=== PATIENT | female | born 1945 | race Caucasian/White ===

== ENCOUNTER 2017-03-05 12:28 | Observation (INO) | payer MEDICAID, OTHER ==
[~2017-03-05] VITALS: Ht 165.1 cm; Wt 101.9 kg
[2017-03-05] MEDS ORDERED: NITROGLYCERIN 2% 1 GM OINT PKT TD STA (12:33)
[2017-03-05] MEDS ORDERED: ASPIRIN 81 MG TAB PO STA (12:33)
[2017-03-05 12:55] LABS: ADD SCAN DIFF NO
[2017-03-05] MEDS ORDERED: NITROGLYCERIN (SL) 0.4 MG TAB SL PRN (13:00)
[2017-03-05 13:01] LABS: BASOPHILS % 0.5 % (0.0-2.0); EOSINOPHILS # 0.2 10^3/ul (0.0-0.5); EOSINOPHILS % 3.5 % (0.0-7.0); HEMATOCRIT 42.6 % (37.0-47.0); LYMPHOCYTES # 1.6 10^3/ul (0.8-2.9); LYMPHOCYTES % 26.5 % (15.0-51.0); MEAN CORPUSCULAR HEMOGLOBIN 28.8 pg (29.0-33.0); MEAN CORPUSCULAR HGB CONC 32.9 g/dl (32.0-37.0); MEAN CORPUSCULAR VOLUME 87.7 fl (82.0-101.0); MEAN PLATELET VOLUME 10.3 fl (7.4-10.4); MONOCYTE # 0.5 10^3/ul (0.3-0.9); MONOCYTES % 8.7 % (0.0-11.0); NEUTROPHIL # 3.6 10^3/ul (1.6-7.5); NEUTROPHILS % 60.5 % (39.0-77.0); PLATELET COUNT 220 10^3/UL (140-415); RED BLOOD COUNT 4.86 10^6/ul (4.20-5.40); RED CELL DISTRIBUTION WIDTH 12.5 % (11.5-14.5)
--- NOTE | 2017-03-05 13:17 | RADRPT ---
PROCEDURE: XR Chest. CLINICAL INDICATION: chest pain TECHNIQUE: Single AP view of the chest were obtained COMPARISON: 07/05/2012 FINDINGS: The heart is moderately enlarged and this is stable. There has been placement of a left-sided cardi ac pacing device with leads extending to the right atrium and ventricle. The pulmonary vasculature a re unremarkable. The aorta demonstrates atherosclerotic calcifications. There is no lung consolida tion, pleural effusion or pneumothorax. Degenerative changes are seen within the thoracic spine. T here is no acute osseous abnormality. IMPRESSION: Stable cardiomegaly. Interval placement of a left-sided cardiac pacing device since the prior study. Otherwise no acute pulmonary process. RPTAT: AA .Jose Huddleston MD, Date Time Electronically viewed and signed by .Jose Huddleston MD, on 03/05/2017 13:16 .J/
[2017-03-05 13:21] LABS: INR 0.97; PROTIME 12.9 Sec (12.2-14.2)
[2017-03-05 13:22] LABS: PARTIAL THROMBOPLASTIN TIME 30.8 Sec (25.0-35.0)
[2017-03-05 13:27] LABS: ANION GAP 12 (8-16); BLOOD UREA NITROGEN 18 mg/dl (7-20); CALCIUM 8.8 mg/dl (8.4-10.2); CARBON DIOXIDE 26 mmol/L (21-31); CHLORIDE 112 mmol/L (97-110); CREATININE 0.71 mg/dl (0.44-1.00); GLUCOSE 109 mg/dl (70-220); POTASSIUM 3.8 mmol/L (3.5-5.1); SODIUM 146 mmol/L (135-144)
[2017-03-05 13:42] LABS: TROPONIN-I < 0.012 ng/ml (0.00-0.12)
[2017-03-05] MEDS ORDERED: ASPI-664 PO (14:05)
[2017-03-05] MEDS ORDERED: CARV3.1260 PO (14:05)
[2017-03-05] MEDS ORDERED: SACU1TAB PO (14:06)
[2017-03-05] MEDS ORDERED: CLOP75TA27 PO (14:06)
[2017-03-05] MEDS ORDERED: ROSU40TA35 PO (14:06)
[2017-03-05] MEDS ORDERED: ONDANSETRON 4 MG INJ IV PRN ×2 (15:00→18:30)
[2017-03-05] MEDS ORDERED: ACETAMINOPHEN 325 MG TAB PO PRN ×2 (15:00→18:30)
--- NOTE | 2017-03-05 15:52 | CONS ---
Date/Time of Note Date/Time of Note DATE: 03/05/17 TIME: 15:46 Assessment/Plan Assessment/Plan Additional Assessment/Plan Chest pain CAD with history of PCI to LAD June 2012 Cardiomyopathy Hypertension Dyslipidemia -ECG without significant acute ischemic abnormalities, first set of troponins are negative. Would obtain serial cardiac enzymes, continue aspirin and Plavix and beta-audrey and statin therapy. Check echocardiogram. Patient on Entresto , thus, likely history of left ventricular systolic dysfunction. If cardiac enzymes remain negative, plan for nuclear cardiac perfusion study in the a.m. Plan of care discussed with the patient and in agreement. Consultation Date/Type/Reason Admit Date/Time Type of Consultation: cv Reason for Consultation Chest pain Hx of Present Illness This is a 72-year-old female with past medical history of coronary artery disease with PCI to LAD June 2012, cardiomyopathy, hypertension who presents with 3 days of chest pain. Chest pain is left-sided. Intermittent association with shortness of breath. Sometimes with activity sometimes not. Chest pain is similar to when she had her myocardial infarction in June 2012 but the intensity is much less. Symptoms were worse this morning she came to the emergency room for evaluation and care. She denies any chest pain or shortness of breath at the current time. She does see her developer analyst on a regular basis. She states she is compliant with her medications. She denies any dizziness or lightheadedness. 12 point review of systems was performed with all pertinent positives and negatives mentioned above and all else is negative Past Medical History Medical History: coronary artery disease, high cholesterol, hypertension Past Surgical History Past Surgical Hx: angioplasty Family History Significant Family History: no pertinent family hx Social History Smoking Status: Current some day smoker Other Social History Lives at home Exam/Review of Systems Vital Signs Vitals Vital Signs Date Time Temp Pulse Resp B/P Pulse Ox O2 Delivery O2 Flow Rate FiO2 03/05/17 12:59 97 22 133/73 97 Room Air 03/05/17 12:37 97.9 Exam No apparent distress, Burkinan-speaking Constitutional: alert, obese, oriented Head: normocephalic Neck: supple Respiratory: clear to auscultation, normal air movement Cardiovascular: other (S1-S2 heard), regular rate and rhythm Gastrointestinal: bowel sounds, non-tender, other (No guarding), soft Extremities: edema (Trace) Results Result Diagram: 03/05/17 1240 03/05/17 1240 Results 24 hrs Laboratory Tests Test 03/05/17 12:40 White Blood Count 6.0 Red Blood Count 4.86 Hemoglobin 14.0 Hematocrit 42.6 Mean Corpuscular Volume 87.7 Mean Corpuscular Hemoglobin 28.8 L Mean Corpuscular Hemoglobin Concent 32.9 Red Cell Distribution Width 12.5 Platelet Count 220 Mean Platelet Volume 10.3 Neutrophils % 60.5 Lymphocytes % 26.5 Monocytes % 8.7 Eosinophils % 3.5 Basophils % 0.5 Nucleated Red Blood Cells % 0.0 Neutrophils # 3.6 Lymphocytes # 1.6 Monocytes # 0.5 Eosinophils # 0.2 Basophils # 0.0 Nucleated Red Blood Cells # 0.0 Prothrombin Time 12.9 Prothrombin Time Ratio 1.0 INR International Normalized Ratio 0.97 Activated Partial Thromboplast Time 30.8 Sodium Level 146 H Potassium Level 3.8 Chloride Level 112 H Carbon Dioxide Level 26 Anion Gap 12 Blood Urea Nitrogen 18 Creatinine 0.71 Glucose Level 109 Calcium Level 8.8 Troponin I < 0.012 Procedures Procedures ECG demonstrates sinus rhythm, anterior Q waves, nonspecific STT wave abnormalities Ghassan Puente DO Mar 05, 2017 15:52
--- NOTE | 2017-03-05 16:59 | ERA ---
ER Documentation Chief Complaint Date/Time DATE: 03/05/17 TIME: 16:57 Chief Complaint LEFT ARM RADIATING TO LEFT NECK. HX OF CARDIAC. NO C/O CP. HPI Patient is a 72-year-old female with cardiac disease and hypertension who presents with chest pain. She has chest pain, neck pain, and shoulder pain. She was brought in by ambulance. She came from home. She said that she had an infarct 3 years ago and that this feels like her previous infarct. She has had 3 days of stress. Upon review of old medical records the patient one previous visit to the ER in 2011. She does not currently have a primary doctor. She says that her nursing care partner is Dr. Lance Garduno. ROS All systems reviewed and are negative except as per history of present illness. Medications Home Meds Reported Medications Sacubitril/Valsartan (Entresto 24 mg-26 mg Tablet) 1 Each Tablet, 1 EACH PO BID , TAB 03/05/17 Rosuvastatin Calcium* (Crestor*) 40 Mg Tablet, 40 MG PO QHS, #30 TAB 03/05/17 Clopidogrel Bisulfate (Clopidogrel) 75 Mg Tablet, 75 MG PO DAILY, #30 TAB 03/05/17 Carvedilol* (Carvedilol*) 3.125 Mg Tablet, 3.125 MG PO BID, #60 TAB 03/05/17 Aspirin* (Aspirin* EC) 81 Mg Tablet.dr, 81 MG PO DAILY, TAB 03/05/17 Allergies Allergies: Coded Allergies: No Known Allergies (Verified Allergy, Unknown, 03/05/17) PMhx/Soc History of Surgery: Yes (KIDENY STONE REMOVAL, APPENDICITIS) Anesthesia Reaction: No Hx Neurological Disorder: No Hx Respiratory Disorders: No Hx Cardiac Disorders: Yes (FROM TIME TO TIME CHEST PAIN) Hx Psychiatric Problems: No Hx Alcohol Use: No Hx Substance Use: No Hx Tobacco Use: Yes (2 CIGARETS A DAY) Smoking Status: Current some day smoker FmHx Family History: No coronary disease Physical Exam Vitals Vital Signs Date Time Temp Pulse Resp B/P Pulse Ox O2 Delivery O2 Flow Rate FiO2 03/05/17 12:59 97 22 133/73 97 Room Air 03/05/17 12:37 97.9 67 19 133/73 99 Physical Exam Const: No acute distress Head: Atraumatic Eyes: Normal Conjunctiva ENT: Normal External Ears, Nose and Mouth. Neck: Full range of motion..~ No meningismus. Resp: Clear to auscultation bilaterally Cardio: Regular rate and rhythm, no murmurs Abd: Soft, non tender, non distended. Normal bowel sounds Skin: No petechiae or rashes Back: No midline or flank tenderness Ext: No cyanosis, or edema Neur: Awake and alert Psych: Normal Mood and Affect Result Diagram: 03/05/17 1240 03/05/17 1240 Results 24 hrs Laboratory Tests Test 03/05/17 12:40 White Blood Count 6.010^3/ul Red Blood Count 4.8610^6/ul Hemoglobin 14.0g/dl Hematocrit 42.6% Mean Corpuscular Volume 87.7fl Mean Corpuscular Hemoglobin 28.8pg Mean Corpuscular Hemoglobin Concent 32.9g/dl Red Cell Distribution Width 12.5% Platelet Count 02023^3/UL Mean Platelet Volume 10.3fl Neutrophils % 60.5% Lymphocytes % 26.5% Monocytes % 8.7% Eosinophils % 3.5% Basophils % 0.5% Nucleated Red Blood Cells % 0.0/100WBC Neutrophils # 3.610^3/ul Lymphocytes # 1.610^3/ul Monocytes # 0.510^3/ul Eosinophils # 0.210^3/ul Basophils # 0.010^3/ul Nucleated Red Blood Cells # 0.010^3/ul Prothrombin Time 12.9Sec Prothrombin Time Ratio 1.0 INR International Normalized Ratio 0.97 Activated Partial Thromboplast Time 30.8Sec Sodium Level 146mmol/L Potassium Level 3.8mmol/L Chloride Level 112mmol/L Carbon Dioxide Level 26mmol/L Anion Gap 12 Blood Urea Nitrogen 18mg/dl Creatinine 0.71mg/dl Glucose Level 109mg/dl Calcium Level 8.8mg/dl Troponin I < 0.012ng/ml Current Medications Medications (Trade) Dose Ordered Sig/Aaron Route PRN Reason Start Time Stop Time Status Last Admin Dose Admin Aspirin (Aspirin) 162 mg ONCE STAT PO 03/05/17 12:33 03/05/17 12:35 DC 03/05/17 12:55 Nitroglycerin (Nitroglycerin 2% Oint) 1 inch ONCE STAT TD 03/05/17 12:33 03/05/17 12:35 DC 03/05/17 12:55 Nitroglycerin (Nitroglycerin (Sl Tab) 0.4 Mg) 1 tab Q5M UP TO 3 DOSES PRN SL CHEST PAIN 03/05/17 13:00 03/05/17 12:55 Ondansetron HCl (Zofran Inj) 4 mg ER BRIDGE PRN IV NAUSEA AND/OR VOMITING 03/05/17 15:00 03/06/17 14:59 Acetaminophen (Tylenol Tab) 650 mg ER BRIDGE PRN PO MILD PAIN/FEVER 03/05/17 15:00 03/06/17 14:59 Aspirin (Aspirin) 81 mg DAILY PO 03/06/17 09:00 Clopidogrel Bisulfate (plaVIX) 75 mg DAILY PO 03/05/17 17:00 Atorvastatin Calcium (Lipitor) 40 mg HS PO 03/05/17 21:00 Carvedilol (Coreg) 6.25 mg BID PO 03/05/17 17:00 Procedures/MDM EKG #1 read by me: Rate/Rhythm: Regular rate and rhythm at a normal rate Intervals: Normal Impression: No evidence of ischemia or arrhythmia Chest x-ray shows cardiomegaly per radiology. Patient is a 72-year-old female with cardiac risk factors who presents with chest pain. I am concerned about potential acute coronary syndrome. I spoke with Dr. Dhillon from the panel team for admission to a telemetry bed. I spoke with Dr. Moreland from cardiology who is come to the bedside to see the patient. The patient will likely need cardiac rule out. I doubt pneumonia, pneumothorax, pulmonary embolism, or aortic dissection. Departure Diagnosis: Primary Impression: Chest pain Qualified Code: R07.9 - Chest pain, unspecified type Condition: TERRY Arana MD Mar 05, 2017 16:59
[2017-03-05] MEDS ORDERED: morphine 2 MG INJ IV PRN (18:30)
[2017-03-05] MEDS ORDERED: LORAZEPAM 0.5 MG TAB PO PRN (18:30)
[2017-03-05] MEDS ORDERED: HYDROCODONE/APAP (5/325) TAB PO PRN (18:30)
[2017-03-05] MEDS ORDERED: NACL 0.9% 3 ML SYG IV SCH (18:30)
[2017-03-05] MEDS ORDERED: DOCUSATE SODIUM 100 MG CAP PO PRN (18:30)
[2017-03-05] MEDS ORDERED: MAGNESIUM HYDROXIDE 30ML CUP PO PRN (18:30)
[2017-03-05] MEDS ORDERED: BISACODYL 10 MG SUPP PR PRN (18:30)
--- NOTE | 2017-03-05 18:32 | RADRPT ---
Echocardiogram Report Patient Name: FLO ESTRELLA Gender: Female Date: 1945 Study Date: 05-Mar-2017 Snubber: [facility] Location: [facility] Ref. Physician: GHASSAN PUENTE Quality: Technically Difficult Study Procedures: Transthoracic echocardiogram with complete 2D, M-Mode, and doppler examination. Indications: Chest Pain, Hx of CAD. 2D/M Mode Doppler Measurement Value Normal Ranges Measurement Value Normal Ranges LVIDd 2D 4.0 3.5 - 5.6 cm AV Peak Nikita 0.9 m/sec LVIDs 2D 3.3 2.1 - 4.1 cm AV Peak PG 3.6 mmHg LVPWd 2D 1.3 0.6 - 1.1 cm LVOT Peak Nikita 0.8 m/sec IVSd 2D 1.3 0.6 - 1.1 cm LVOT Peak PG 2.6 mmHg AoR Diam 2D 2.9 2.0 - 3.7 cm MV E Peak Nikita 0.8 m/sec EDV 2D 68.1 cm3 MV A Peak Nikita 1.0 m/sec ESV 2D 35.0 cm3 MV E/A 0.8 LA Dimen 2D 4.0 2.3 - 4.0 cm MV Decel Time 311 msec MV Decel Bowman 3 MV E/A 0.8 TR Peak Nikita 2.5 m/sec TR Peak PG 24.4 mmHg RVSP 27.0 mmHg Findings Left Ventricle: Normal left ventricular cavity size. Mild concentric left ventricular hypertrophy. Moderate left ventricular systolic dysfunction. Ejection fraction is visually estimated at 40 %. Tissue Doppler/Mitral Doppler indices are consistent with impaired relaxation (Stage I diastolic dysfunction). These segments of the LV are akinetic anteroseptum mid segment, apical septum segment, apical anterior segment and mid anterior segment. Right Ventricle: Normal right ventricular size. Normal right ventricular systolic function. Left Atrium: The left atrium is normal in size. Right Atrium: The right atrium is normal in size. Mitral Valve: Mild mitral leaflet calcification. Trace mitral regurgitation. Aortic Valve: Normal appearance of the aortic valve. No significant aortic stenosis or insufficiency. Tricuspid Valve: Normal appearance and function of the tricuspid valve with trace physiologic regurgitation. Estimated peak PA systolic pressure 27 mmHg. Pericardium: Normal pericardium with no significant pericardial effusion. Aorta: Normal aortic root. IVC: Normal size and normal respiratory collapse consistent with normal right atrial pressure. Conclusions Normal left ventricular cavity size. Mild concentric left ventricular hypertrophy. Moderate left ventricular systolic dysfunction. Ejection fraction is visually estimated at 40 %. Tissue Doppler/Mitral Doppler indices are consistent with impaired relaxation (Stage I diastolic dysfunction). These segments of the LV are akinetic anteroseptum mid segment, apical septum segment., apical anterior segment. and mid anterior segment. Normal right ventricular size. Normal right ventricular systolic function. The left atrium is normal in size. The right atrium is normal in size. No significant valvular stenosis or regurgitation seen. Normal pericardium with no significant pericardial effusion. Electronically Signed By: Ghassan Puente 05-Mar-2017 18:31:56 -0700 Patient Name: FLO ESTRELLA Study Date: 05-Mar-[id number]
[2017-03-05 20:00] VITALS: Ht 165.1 cm; Wt 101.9 kg
[2017-03-05 20:06] VITALS: PULSE 72
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
[2017-03-05] MEDS: FAMOTIDINE 20 MG TAB PO SCH (20:41)
[2017-03-05] MEDS: CLOPIDOGREL 75 MG TAB PO SCH (20:45)
[2017-03-05 20:47] VITALS: BP 132/61; RESP 16
[2017-03-05 20:51] LABS: CK-MB 1.58 ng/ml (0.0-2.4)
[2017-03-05 20:53] LABS: TROPONIN-I < 0.012 ng/ml (0.00-0.12)
[2017-03-05 20:54] LABS: CREATINE KINASE 106 IU/L (23-200)
[2017-03-05] MEDS ORDERED: ATORVASTATIN 40 MG TAB PO SCH (21:00)
[2017-03-05] MEDS ORDERED: ROSUVASTATIN CALCIUM 40 MG TABLET PO SCH (21:00)
[2017-03-06] VITALS (8 sets, daily range): BP systolic 102–156; BP diastolic 52–81; PULSE 59–60; RESP 18
[2017-03-06 01:30] LABS: CK-MB 1.29 ng/ml (0.0-2.4)
[2017-03-06 01:33] LABS: TROPONIN-I < 0.012 ng/ml (0.00-0.12)
[2017-03-06 01:40] LABS: CREATINE KINASE 97 IU/L (23-200)
[2017-03-06] MEDS ORDERED: ASPIRIN 81 MG TAB PO SCH (09:00)
[2017-03-06 09:05] LABS: ALBUMIN 3.9 g/dl (3.3-4.9); ALBUMIN/GLOBULIN RATIO 1.56; BILIRUBIN,INDIRECT 0.4 mg/dl (0-1.1); BILIRUBIN,TOTAL 0.4 mg/dl (0.2-1.3); CALCIUM 8.8 mg/dl (8.4-10.2); CHOL/HDL RATIO 2.8 RATIO; CREATININE 0.66 mg/dl (0.44-1.00); MAGNESIUM 1.9 mg/dl (1.7-2.5); POTASSIUM 3.9 mmol/L (3.5-5.1); TOTAL PROTEIN 6.4 g/dl (6.1-8.1)
[2017-03-06] MEDS: FAMOTIDINE 20 MG TAB PO SCH (09:09)
[2017-03-06] MEDS: CLOPIDOGREL 75 MG TAB PO SCH (09:10)
[2017-03-06 09:29] LABS: THYROID STIMULATING HORMONE 4.78 MIU/L (0.465-4.680)
[2017-03-06] MEDS ORDERED: REGADENOSON 0.4 MG/5 ML SYG ONE (10:54)
--- NOTE | 2017-03-06 12:17 | PN ---
DATE: 03/06/2017 CARDIOLOGY FOLLOWUP SUBJECTIVE: Discussed with the staff. The patient with no chest pain or pressure. No palpitation. No shortness of breath. MEDICATIONS: Reviewed, which include: 1. Aspirin. 2. Crestor. 3. Pepcid. 4. Morphine. 5. Plavix. 6. Coreg. PHYSICAL EXAMINATION: VITAL SIGNS: Temperature 98.5, heart rate of 60, blood pressure 140/60, respiratory rate of 18, sat urating 94% to 95%. HEENT: Normocephalic, atraumatic. Obese female in no acute distress. CARDIOVASCULAR: Regular rate and rhythm. PULMONARY: With no wheezes now. GASTROINTESTINAL: Soft, nontender. EXTREMITIES: No significant edema. NEUROLOGIC: Awake, responds appropriately. PSYCHIATRIC: Appears to be calm and pleasant. LABORATORY DATA: Troponins have been negative x3. Sodium 145, potassium 3.9. LDL of 71, HDL of 46 . Echocardiogram read by Dr. Puente showed ejection fraction of 40%, grade I diastolic dysfunction. Akinetic anteroseptal wall. ASSESSMENT AND PLAN: 1. Chest pain syndrome, rule acute coronary syndrome. 2. Coronary artery disease. 3. History of moderate cardiomyopathy. 4. Hypertension. 5. Dyslipidemia. RECOMMENDATIONS: Lexiscan stress test will be done today. Continue with the current optimal medica l therapy. Cardiac catheterization if the stress test is abnormal, otherwise optimized medical ther apy will be continued. Dictated By: MARSHALL SANCHEZ MD AV/MAGDIEL Conf#: [id number] DID#: [id number] CC: BEAN VILLANUEVA MD;*End*
--- NOTE | 2017-03-06 12:51 | TMLRPT ---
DATE: 03/06/2017 CARDIOLOGY LEXISCAN STRESS TEST INDICATION: Chest pain. DESCRIPTION: Lexiscan was performed as per protocol. FINDINGS: 1. Baseline EKG showed normal sinus rhythm. LVH ____. 2. Heart rate at baseline 50, blood pressure 146/70, heart rate at peak stress is ____, blood press ure 147/77. 3. No significant ischemic ST changes or arrhythmia is seen. CONCLUSION: Completion of Lexiscan stress test as per protocol. See nuclear medicine result for fi nal report. Dictated By: MARSHALL SANCHEZ MD AV/MAGDIEL Conf#: [id number] DID#: [id number] CC: BEAN VILLANUEVA MD;*End*
--- NOTE | 2017-03-06 13:08 | PN ---
Date/Time of Note Date/Time of Note DATE: 03/06/17 TIME: 13:00 Assessment/Plan VTE Prophylaxis VTE Prophylaxis Intervention: SCD's Lines/Catheters IV Catheter Type (from [facility]): Saline Lock Urinary Cath still in place: No Assessment/Plan Assessment/Plan 72-year-old female with: 1. Chest pressure, chest pain. Patient ruled out for ACS Stress test done this AM Cardiology, Dr Napier following Continue current meds 2. Coronary artery disease, s/p PCI 2011. Continue current medications. 3. Cardiomyopathy wit repeat Echo with EF of 40% . S/p pacemaker device placement. She remains euvolemic Continue current medications. 4. Hyperlipidemia. Continue statin therapy. Check fasting lipid panel in a.m. 5. Hypertension. Continue current medications. Prophylaxis: Sequential compression devices to lower extremity for DVT prophylaxis. Pepcid for GI prophylaxis. DISPOSITION: Follow up stress test results for d/c planning vs angio Subjective 24 Hr Interval Summary Free Text/Dictation Patient doing well this AM No chest pain, just finished Stress test and awaiting results for further planning. Exam/Review of Systems Vital Signs Vitals Vital Signs Date Time Temp Pulse Resp B/P Pulse Ox O2 Delivery O2 Flow Rate FiO2 03/06/17 12:44 59 03/06/17 12:28 98.0 18 156/81 100 03/05/17 18:32 Room Air Intake and Output 03/05/17 03/05/17 03/06/17 15:00 23:00 07:00 Intake Total 350 ml Balance 350 ml Exam Constitutional: alert, oriented, well developed Respiratory: clear to auscultation, normal air movement Cardiovascular: nl pulses, regular rate and rhythm Gastrointestinal: non-tender, soft Musculoskeletal: nl extremities to inspection Extremities: normal pulses, other (no edema, clubbing or cyanosis ) 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, nl mental status, nl speech, nl strength Results Result Diagram: 03/05/17 1240 03/06/17 0714 Results 24 hrs Laboratory Tests Test 03/05/17 19:55 03/06/17 00:25 03/06/17 07:14 Creatine Kinase 106 97 Creatine Kinase Index 1.5 1.3 Creatinine Kinase MB (Mass) 1.58 1.29 Troponin I < 0.012 < 0.012 Sodium Level 145 H Potassium Level 3.9 Chloride Level 112 H Carbon Dioxide Level 25 Anion Gap 12 Blood Urea Nitrogen 17 Creatinine 0.66 Glucose Level 99 Calcium Level 8.8 Magnesium Level 1.9 Total Bilirubin 0.4 Direct Bilirubin 0.00 Indirect Bilirubin 0.4 Aspartate Amino Transf (AST/SGOT) 19 Alanine Aminotransferase (ALT/SGPT) 34 Alkaline Phosphatase 73 Total Protein 6.4 Albumin 3.9 Globulin 2.50 Albumin/Globulin Ratio 1.56 Triglycerides Level 70 Cholesterol Level 131 LDL Cholesterol, Calculated 71 HDL Cholesterol 46 Cholesterol/HDL Ratio 2.8 Thyroid Stimulating Hormone (TSH) 4.780 H Free Thyroxine 0.75 L Medications Medications Current Medications Aspirin (Aspirin) 81 mg DAILY PO Last administered on 03/06/17 09:10; Admin Dose 81 MG; Start 03/06/17 at 09:00 Clopidogrel Bisulfate (plaVIX) 75 mg DAILY PO Last administered on 03/06/17 09 :10; Admin Dose 75 MG; Start 03/05/17 at 17:00 Carvedilol (Coreg) 6.25 mg BID PO Last administered on 03/06/17 09:09; Admin Dose 6.25 MG; Start 03/05/17 at 17:00 Rosuvastatin Calcium (Crestor) 40 mg QHS PO Last administered on 03/05/17 20:44 ; Admin Dose 40 MG; Start 03/05/17 at 21:00 Lorazepam (Ativan) 0.5 mg Q8H PRN PO ANXIETY; Start 03/05/17 at 18:30 Ondansetron HCl (Zofran Inj) 4 mg Q6H PRN IV NAUSEA AND/OR VOMITING; Start 03/05 at 18:30 Acetaminophen (Tylenol Tab) 650 mg Q6H PRN PO PAIN LEVEL 1-3 OR FEVER; Start at 18:30 Acetaminophen/ Hydrocodone Bitart ([place] (5/325)) 1 tab Q6H PRN PO PAIN LEVEL 4 -6; Start 03/05/17 at 18:30 Morphine Sulfate (morphine) 2 mg Q4H PRN IV PAIN LEVEL 7-10; Start 03/05/17 at 18:30 Docusate Sodium (Colace) 100 mg Q12H PRN PO CONSTIPATION; Start 03/05/17 at 18: 30 Magnesium Hydroxide (Milk Of Mag) 30 ml DAILY PRN PO CONSTIPATION; Start at 18:30 Bisacodyl (Dulcolax Supp) 10 mg DAILY PRN [place] CONSTIPATION; Start 03/05/17 at 18: 30 Famotidine (Pepcid) 20 mg Q12 PO Last administered on 03/06/17 09:09; Admin Dose 20 MG; Start 03/05/17 at 21:00 BEAN VILLANUEVA Mar 06, 2017 13:08
--- NOTE | 2017-03-06 13:50 | RADRPT ---
PROCEDURE: Nuclear medicine myocardial perfusion scan CLINICAL INDICATION: Chest pain TECHNIQUE: 32.7 mCi of technetium 99m Cardiolite was administered for the stress study. 10.5 mCi of technetium 99m Cardiolite was administered for the resting study. The patient was stressed with 0 .4 mg of Lexiscan. Images were reviewed in the short axis, vertical long axis, and horizontal long axis views. Wall motion was assessed and ejection fraction was calculated as well. Images were revi ewed on a high-resolution PACS workstation. COMPARISON: None available FINDINGS: Left ventricular size is moderately dilated. There is moderate soft tissue and bowel attenuation ar tifact. The stress tomographic images demonstrate a large area of diminished perfusion throughout t he entire septal wall, as well as the anterior and inferior carlos and the left ventricular apex. Th ere is preserved normal perfusion to most of the lateral wall. The resting tomographic images demons trate a similar pattern. There is no evidence for reversible ischemia. Wall motion is significantl y diminished. The ejection fraction is calculated at 29%. IMPRESSION: 1. Moderate and significant left ventricular dilatation. 2. No significant abnormal perfusion throughout most of the left ventricular myocardium. There is diffusely diminished perfusion with relative preserved normal perfusion of the lateral wall. The ap pearances are similar and stable on the stress and rest images. 3. There is considerable diminished perfusion of the apex of the left ventricle consistent with an old infarct. 4. However, there is no evidence for significant or definite reversible ischemia. 5. Markedly diminished global wall motion with severely depressed ejection fraction of 29%. RPTAT: HMJB .Roberto Bowie MD, Date Time Electronically viewed and signed by .Roberto Bowie MD, MD on 03/06/2017 13:49 .B/
--- NOTE | 2017-03-06 14:22 | PDOCDIS ---
Discharge Instructions CONDITION Patient Condition: Stable HOME CARE INSTRUCTIONS: Diet Instructions: Low Fat /CholesterolSpecial Diet: cardiac diet ACTIVITY: Activity Restrictions: No Restrictions FOLLOW UP/APPOINTMENTS Appointments Follow up with PCP within 1 week Follow up with Primary [facility] for student affairs within 1 to 2 weeks BEAN VILLANUEVA Mar 06, 2017 14:22
== END 2017-03-06 15:38 | disposition home or self-care (01) ==
LOC: FTE 12:28 → MS4 15:01
PROVIDERS: ADMIT Internal Medicine; ATTEND Internal Medicine
DX: R07.9 Chest pain, unspecified (principal); I10 Essential (primary) hypertension; F17.210 Nicotine dependence, cigarettes, uncomplicated; I25.10 Atherosclerotic heart disease of native coronary artery without angina pectoris; Z95.5 Presence of coronary angioplasty implant and graft; I42.9 Cardiomyopathy, unspecified; E78.5 Hyperlipidemia, unspecified; E78.00 Pure hypercholesterolemia, unspecified; Z79.82 Long term (current) use of aspirin; Z87.442 Personal history of urinary calculi; Z95.0 Presence of cardiac pacemaker; E66.9 Obesity, unspecified; Z68.37 Body mass index [BMI] 37.0-37.9, adult
CPT/HCPCS: 36415; 71010; 78452; 80048; 80053; 80061; 82550; 82553; 83735; 84439; 84443; 84484; 85025; 85610; 85730; 93005; 93017; 93306; A9500; A9505; J2785; Z7500; Z7502; Z7610; G0378